=== PATIENT | male | born 1935 | race Caucasian/White ===

== ENCOUNTER 2023-03-05 13:05 | Inpatient (IN) | payer MEDICARE, BC ==
[2023-03-05] VITALS (22 sets, daily range): BP systolic 68–116; BP diastolic 56–91
[~2023-03-05] VITALS: Ht 177.8 cm; Wt 73.5 kg
[2023-03-05] MEDS ORDERED: VANCOMYCIN 1 GM in IV D5W 250 ML IV ONE (13:30)
[2023-03-05] MEDS ORDERED: AZITHROMYCIN 500 MG in IV D5W 250 ML IV ONE (13:30)
[2023-03-05] MEDS ORDERED: PIPERACILLIN /TAZOBACTAM 3.375 G in IV D5W 50 ML IV ONE (13:30)
[2023-03-05 13:36] LABS: ABG BASE EXCESS 0.4 mmol/L; ABG PCO2 40.6 mmHg (35.0-45.0); ABG PH 7.409 (7.350-7.450); ABG PO2 77.8 mmHg (75.0-100.0); COHb 0.5 % (0.5-1.5); MetHb 0.3 % (0.0-1.5); O2Hb 93.1 % (94.0-97.0); SITE, ABG Left Radial; VENT MODE, BG 15 LPM NRB
[2023-03-05 13:46] LABS: BASOPHILS # (AUTO) 0.1 K/uL (0.0-0.2); BASOPHILS % (AUTO) 0.5 % (0.0-2.0); EOSINOPHILS % (AUTO) 0.1 % (0.0-6.0); HEMATOCRIT 35 % (39-51); HEMOGLOBIN 10.6 g/dL (13.5-17.5); LYMPHOCYTES # (AUTO) 0.2 K/uL (0.8-4.8); LYMPHOCYTES % (AUTO) 1.7 % (20.0-44.0); MEAN CORPUSCULAR HGB CONC 30 g/dl (31.0-36.0); MEAN CORPUSCULAR VOLUME 103 fL (80-96); MONOCYTES # (AUTO) 0.3 K/uL (0.1-1.30); MONOCYTES % (AUTO) 2.3 % (2.0-12.0); NEUTROPHILS # (AUTO) 10.6 K/uL (1.8-8.9); NEUTROPHILS % (AUTO) 95.4 % (43.0-81.0); PLATELET COUNT (AUTO) 80 K/uL (150-450); RED BLOOD CELL COUNT(AUTO) 3.43 MIL/uL (4.5-6.0); WHITE BLOOD COUNT (AUTO) 11.1 K/uL (4.3-11.0)
[2023-03-05 14:14] LABS: CALCIUM, SERUM 9.1 mg/dL (8.5-10.1); CARBON DIOXIDE 29 mmol/L (21-32); CHLORIDE 103 mmol/L (98-107); CREATININE 4.7 mg/dL (0.6-1.3); GLUCOSE 136 mg/dL (74-106); POTASSIUM 4.5 mmol/L (3.5-5.1); SODIUM SERUM 143 mmol/L (136-145); UREA NITROGEN, BLOOD 37 mg/dL (7-18)
[2023-03-05 14:26] LABS: ALANINE AMINOTRANSFERASE 29 U/L (12-78); ALBUMIN 3.2 g/dL (3.4-5.0); ALKALINE PHOSPHATASE 153 U/L (46-116); ASPARTATE AMINOTRANSFERASE 20 U/L (15-37); BILIRUBIN,DIRECT 0.2 mg/dL (0.0-0.2); BILIRUBIN,TOTAL 0.4 mg/dL (0.2-1.0); TOTAL PROTEIN, SERUM 6.3 g/dL (6.4-8.2)
[2023-03-05 14:56] LABS: BILIRUBIN,URINE NEGATIVE (NEGATIVE); COLOR,URINE YELLOW (YELLOW); LEUKOCYTE ESTERASE ,URINE NEGATIVE (NEGATIVE); NITRITE, URINE NEGATIVE (NEGATIVE); PROTEIN,URINE 1+ mg/dl (NEGATIVE); UGLUCOSE NEGATIVE (NEGATIVE); UROBILINOGEN,URINE 0.2 EU/dL (0.2)
[2023-03-05] MEDS ORDERED: IV NS 0.9% 500 ML BAG IV ONE (15:30)
[2023-03-05] MEDS ORDERED: ONDANSETRON HCL/PF 4 MG/2 ML VIAL IVP PRN (16:00)
[2023-03-05] MEDS ORDERED: ACETAMINOPHEN 325 MG TABLET PO PRN (16:00)
[2023-03-05] MEDS ORDERED: Z GUARD REMEDY 4 OZ OINT TP PRN (16:00)
[2023-03-05] MEDS: HEPARIN SODIUM, PORCINE 5000 UNITS/1 ML VIAL SQ SCH (16:00)
[2023-03-05] MEDS ORDERED: MAG HYDROX/AL HYDROX/SIMETH 30 ML UDC PO PRN (16:00)
[2023-03-05] MEDS ORDERED: NOREPINEPHRINE 8 MG in IV D5W 242 ML IV PRN (16:00)
[2023-03-05] MEDS ORDERED: MAGNESIUM HYDROXIDE 30 ML UDC PO PRN (16:00)
[2023-03-05] MEDS ORDERED: GABA-532 PO (16:40)
[2023-03-05] MEDS ORDERED: ALLO300T2 PO (16:40)
[2023-03-05] MEDS ORDERED: SODI15OR6 PO (16:40)
[2023-03-05] MEDS ORDERED: ATOR10TA PO (16:40)
[2023-03-05] MEDS ORDERED: AMIO200T5 PO (16:40)
[2023-03-05] MEDS ORDERED: FINA5TAB11 PO (16:40)
[2023-03-05] MEDS ORDERED: LEVO100T9 PO (16:40)
[2023-03-05] MEDS ORDERED: MODAFINIL PO (16:40)
[2023-03-05] MEDS ORDERED: MIDO10TA PO (16:40)
[2023-03-05] MEDS ORDERED: CHOL100043 PO (16:40)
[2023-03-05] MEDS ORDERED: AMLO-213 PO (16:40)
[2023-03-05] MEDS ORDERED: HYDR100T27 PO (16:40)
[2023-03-05] MEDS ORDERED: PANT40TA49 PO (16:40)
[2023-03-05] MEDS ORDERED: FURO40TA5 PO (16:40)
[2023-03-05] MEDS ORDERED: INSU100V28 SQ (16:43)
[2023-03-05] MEDS ORDERED: PRAM0.5T11 PO (16:44)
[2023-03-05 16:45] LABS: BACTERIA,URINE Few /HPF (None Seen); MUCUS,URINE Rare /LPF (None Seen); RBC,URINE NONE SEEN /HPF (0-2); SQUAMOUS EPITHELIAL CELL,UR None Seen /HPF (None Seen); WBC,URINE NONE SEEN /HPF (0-3)
[2023-03-05 18:33] LABS: EOSINOPHILS % (MANUAL) 2 % (0-4); LYMPHOCYTES % (MANUAL) 1 % (16-48); MONOCYTES % (MANUAL) 2 % (0-11.0); NEUTROPHILS % (MANUAL) 95 (42-76)
[2023-03-05] MEDS: methylPREDNISolone SOD SUCC 40 MG/ML VIAL IV SCH ×2 (19:19→21:00)
[2023-03-05] MEDS: PIPERACILLIN /TAZOBACTAM 2.25 G in IV D5W 50 ML IV SCH (19:19)
[2023-03-05] MEDS ORDERED: NOREPINEPHRINE 8 MG in IV NS 0.9% 242 ML IV PRN ×4 (19:30)
[2023-03-05] MEDS ORDERED: NOREPINEPHRINE 32 MG in IV NS 0.9% 218 ML IV PRN (21:00)
[2023-03-05] MEDS: IV NS 0.9% 250 ML IV PRN (23:46)
[2023-03-06] VITALS (75 sets, daily range): BP systolic 86–137; BP diastolic 21–99
[2023-03-06 04:26] LABS: BASOPHILS % (AUTO) 0.1 % (0.0-2.0); HEMATOCRIT 37 % (39-51); HEMOGLOBIN 11.3 g/dL (13.5-17.5); LYMPHOCYTES # (AUTO) 0.1 K/uL (0.8-4.8); LYMPHOCYTES % (AUTO) 0.8 % (20.0-44.0); MEAN CORPUSCULAR HGB CONC 31 g/dl (31.0-36.0); MEAN CORPUSCULAR VOLUME 101 fL (80-96); MONOCYTES # (AUTO) 0.1 K/uL (0.1-1.30); MONOCYTES % (AUTO) 0.5 % (2.0-12.0); NEUTROPHILS # (AUTO) 17.9 K/uL (1.8-8.9); NEUTROPHILS % (AUTO) 98.6 % (43.0-81.0); PLATELET COUNT (AUTO) 128 K/uL (150-450); RED BLOOD CELL COUNT(AUTO) 3.62 MIL/uL (4.5-6.0); WHITE BLOOD COUNT (AUTO) 18.2 K/uL (4.3-11.0)
[2023-03-06] MEDS: HEPARIN SODIUM, PORCINE 5000 UNITS/1 ML VIAL SQ SCH ×2 (04:39→16:24)
[2023-03-06] MEDS: methylPREDNISolone SOD SUCC 40 MG/ML VIAL IV SCH (04:39)
[2023-03-06 04:40] LABS: ALANINE AMINOTRANSFERASE 32 U/L (12-78); ALBUMIN 3.1 g/dL (3.4-5.0); ALKALINE PHOSPHATASE 154 U/L (46-116); ASPARTATE AMINOTRANSFERASE 19 U/L (15-37); BILIRUBIN,TOTAL 0.6 mg/dL (0.2-1.0); CALCIUM, SERUM 9.1 mg/dL (8.5-10.1); CARBON DIOXIDE 27 mmol/L (21-32); CHLORIDE 100 mmol/L (98-107); CREATININE 4.9 mg/dL (0.6-1.3); GLUCOSE 191 mg/dL (74-106); MAGNESIUM 2.1 mg/dL (1.8-2.4); PHOSPHORUS 4.3 mg/dL (2.5-4.9); POTASSIUM 5.4 mmol/L (3.5-5.1); SODIUM SERUM 139 mmol/L (136-145); TOTAL PROTEIN, SERUM 6.6 g/dL (6.4-8.2); UREA NITROGEN, BLOOD 41 mg/dL (7-18)
[2023-03-06] MEDS: PIPERACILLIN /TAZOBACTAM 2.25 G in IV D5W 50 ML IV SCH ×6 (05:31→23:51)
[2023-03-06 10:05] LABS: ABG BASE EXCESS 2.4 mmol/L; ABG OXYGEN SATURATION 87.8 % (92.0-98.5); ABG PO2 51.3 mmHg (75.0-100.0); COHb 0.9 % (0.5-1.5); MetHb 0.1 % (0.0-1.5); O2Hb 86.9 % (94.0-97.0); SITE, ABG Right Radial
[2023-03-06] MEDS: VANCOMYCIN 500 MG in IV D5W 100 ML IV PRN (12:50)
[2023-03-06] MEDS: IV NS 0.9% 250 ML IV PRN (21:07)
[2023-03-07] VITALS (24 sets, daily range): BP systolic 87–130; BP diastolic 54–95
[2023-03-07 04:42] LABS: BASOPHILS % (AUTO) 0.1 % (0.0-2.0); HEMATOCRIT 32 % (39-51); HEMOGLOBIN 9.9 g/dL (13.5-17.5); LYMPHOCYTES # (AUTO) 0.4 K/uL (0.8-4.8); LYMPHOCYTES % (AUTO) 3.7 % (20.0-44.0); MEAN CORPUSCULAR HGB CONC 31 g/dl (31.0-36.0); MEAN CORPUSCULAR VOLUME 101 fL (80-96); MONOCYTES # (AUTO) 0.6 K/uL (0.1-1.30); MONOCYTES % (AUTO) 4.9 % (2.0-12.0); NEUTROPHILS # (AUTO) 10.6 K/uL (1.8-8.9); NEUTROPHILS % (AUTO) 91.3 % (43.0-81.0); PLATELET COUNT (AUTO) 90 K/uL (150-450); RED BLOOD CELL COUNT(AUTO) 3.12 MIL/uL (4.5-6.0); WHITE BLOOD COUNT (AUTO) 11.6 K/uL (4.3-11.0)
[2023-03-07] MEDS: HEPARIN SODIUM, PORCINE 5000 UNITS/1 ML VIAL SQ SCH ×2 (05:10→16:00)
[2023-03-07 05:29] LABS: ALANINE AMINOTRANSFERASE 33 U/L (12-78); ALBUMIN 2.9 g/dL (3.4-5.0); ALKALINE PHOSPHATASE 129 U/L (46-116); ASPARTATE AMINOTRANSFERASE 28 U/L (15-37); BILIRUBIN,TOTAL 0.6 mg/dL (0.2-1.0); CALCIUM, SERUM 9.2 mg/dL (8.5-10.1); CARBON DIOXIDE 25 mmol/L (21-32); CHLORIDE 101 mmol/L (98-107); CREATININE 4.7 mg/dL (0.6-1.3); GLUCOSE 107 mg/dL (74-106); MAGNESIUM 2.1 mg/dL (1.8-2.4); PHOSPHORUS 5.1 mg/dL (2.5-4.9); POTASSIUM 5.3 mmol/L (3.5-5.1); SODIUM SERUM 140 mmol/L (136-145); TOTAL PROTEIN, SERUM 6.1 g/dL (6.4-8.2); UREA NITROGEN, BLOOD 43 mg/dL (7-18)
[2023-03-07] MEDS: PIPERACILLIN /TAZOBACTAM 2.25 G in IV D5W 50 ML IV SCH ×4 (05:44→23:32)
[2023-03-07] MEDS: VANCOMYCIN 500 MG in IV D5W 100 ML IV PRN (13:45)
[2023-03-07 14:11] LABS: LYMPHOCYTES % (MANUAL) 9 % (16-48); MONOCYTES % (MANUAL) 3 % (0-11.0); NEUTROPHILS % (MANUAL) 88 (42-76)
[2023-03-07] MEDS: MUPIROCIN OINT 2% 22 GM TUBE NS SCH (22:28)
[2023-03-08] VITALS (18 sets, daily range): BP systolic 95–118; BP diastolic 48–87
[2023-03-08] MEDS: PIPERACILLIN /TAZOBACTAM 2.25 G in IV D5W 50 ML IV SCH ×4 (05:12→23:41)
[2023-03-08] MEDS: HEPARIN SODIUM, PORCINE 5000 UNITS/1 ML VIAL SQ SCH ×2 (05:20→15:10)
[2023-03-08 05:21] LABS: CALCIUM, SERUM 8.8 mg/dL (8.5-10.1); CARBON DIOXIDE 20 mmol/L (21-32); CHLORIDE 107 mmol/L (98-107); GLUCOSE 95 mg/dL (74-106); POTASSIUM 4.3 mmol/L (3.5-5.1); SODIUM SERUM 144 mmol/L (136-145); UREA NITROGEN, BLOOD 42 mg/dL (7-18)
[2023-03-08] MEDS: MUPIROCIN OINT 2% 22 GM TUBE NS SCH ×2 (11:13→21:03)
[2023-03-08] MEDS: VANCOMYCIN 500 MG in IV D5W 100 ML IV PRN (11:59)
[2023-03-09] VITALS: BP 102/52
[2023-03-09] MEDS: HEPARIN SODIUM, PORCINE 5000 UNITS/1 ML VIAL SQ SCH ×2 (03:54→16:03)
[2023-03-09 04:00] VITALS: BP 107/61
[2023-03-09] MEDS: PIPERACILLIN /TAZOBACTAM 2.25 G in IV D5W 50 ML IV SCH ×3 (05:04→17:00)
[2023-03-09 06:49] LABS: CALCIUM, SERUM 9.1 mg/dL (8.5-10.1); CARBON DIOXIDE 22 mmol/L (21-32); CHLORIDE 105 mmol/L (98-107); CREATININE 4.1 mg/dL (0.6-1.3); GLUCOSE 115 mg/dL (74-106); POTASSIUM 3.7 mmol/L (3.5-5.1); SODIUM SERUM 144 mmol/L (136-145); UREA NITROGEN, BLOOD 45 mg/dL (7-18)
[2023-03-09 08:00] VITALS: BP 141/82
[2023-03-09] MEDS: MUPIROCIN OINT 2% 22 GM TUBE NS SCH ×2 (08:14→22:08)
[2023-03-09 12:00] VITALS: BP 137/63
[2023-03-09 16:00] VITALS: BP 125/63
[2023-03-09 20:00] VITALS: BP 114/51
[2023-03-09] MEDS: risperiDONE 1 MG TABLET PO SCH (22:00)
[2023-03-10] VITALS: BP 120/53
[2023-03-10] MEDS: PIPERACILLIN /TAZOBACTAM 2.25 G in IV D5W 50 ML IV SCH ×5 (00:27→23:54)
[2023-03-10 04:00] VITALS: BP 121/58
[2023-03-10] MEDS: HEPARIN SODIUM, PORCINE 5000 UNITS/1 ML VIAL SQ SCH ×2 (04:28→15:13)
[2023-03-10 08:00] VITALS: BP 102/48
[2023-03-10 08:25] LABS: CALCIUM, SERUM 8.9 mg/dL (8.5-10.1); CARBON DIOXIDE 22 mmol/L (21-32); CHLORIDE 107 mmol/L (98-107); GLUCOSE 100 mg/dL (74-106); POTASSIUM 3.9 mmol/L (3.5-5.1); SODIUM SERUM 147 mmol/L (136-145); UREA NITROGEN, BLOOD 56 mg/dL (7-18)
[2023-03-10] MEDS: MUPIROCIN OINT 2% 22 GM TUBE NS SCH ×2 (08:32→21:31)
[2023-03-10] MEDS: risperiDONE 0.25 MG TABLET PO SCH ×2 (08:32→16:34)
[2023-03-10 12:00] VITALS: BP 122/56
[2023-03-10 16:14] VITALS: BP 119/46
[2023-03-10 20:00] VITALS: BP 142/70
[2023-03-10] MEDS: VANCOMYCIN 500 MG in IV D5W 100 ML IV PRN (20:27)
[2023-03-10] MEDS: risperiDONE 1 MG TABLET PO SCH (21:32)
[2023-03-11] VITALS: BP 144/73
[2023-03-11] MEDS: HEPARIN SODIUM, PORCINE 5000 UNITS/1 ML VIAL SQ SCH ×2 (03:15→15:59)
[2023-03-11 04:00] VITALS: BP 143/60
[2023-03-11] MEDS: PIPERACILLIN /TAZOBACTAM 2.25 G in IV D5W 50 ML IV SCH ×3 (05:25→17:01)
[2023-03-11 06:49] LABS: CARBON DIOXIDE 24 mmol/L (21-32); CHLORIDE 108 mmol/L (98-107); CREATININE 4.2 mg/dL (0.6-1.3); GLUCOSE 112 mg/dL (74-106); POTASSIUM 3.6 mmol/L (3.5-5.1); SODIUM SERUM 145 mmol/L (136-145); UREA NITROGEN, BLOOD 39 mg/dL (7-18)
[2023-03-11 07:58] LABS: CALCIUM, SERUM 8.9 mg/dL (8.5-10.1); CARBON DIOXIDE 23 mmol/L (21-32); CHLORIDE 108 mmol/L (98-107); CREATININE 4.2 mg/dL (0.6-1.3); GLUCOSE 112 mg/dL (74-106); POTASSIUM 3.6 mmol/L (3.5-5.1); SODIUM SERUM 147 mmol/L (136-145); UREA NITROGEN, BLOOD 38 mg/dL (7-18)
[2023-03-11 08:00] VITALS: BP 101/58
[2023-03-11 08:02] LABS: ALANINE AMINOTRANSFERASE 28 U/L (12-78); ALBUMIN 2.3 g/dL (3.4-5.0); ALKALINE PHOSPHATASE 100 U/L (46-116); ASPARTATE AMINOTRANSFERASE 23 U/L (15-37); BILIRUBIN,TOTAL 0.8 mg/dL (0.2-1.0); TOTAL PROTEIN, SERUM 5.6 g/dL (6.4-8.2)
[2023-03-11] MEDS: MUPIROCIN OINT 2% 22 GM TUBE NS SCH ×2 (08:07→21:44)
[2023-03-11] MEDS: risperiDONE 0.25 MG TABLET PO SCH ×2 (08:16→16:03)
[2023-03-11] MEDS ORDERED: NEPRO VAN 237 ML CAN PO PRN (11:00)
[2023-03-11 12:00] VITALS: BP 123/59
[2023-03-11 16:00] VITALS: BP 119/61
[2023-03-11 20:00] VITALS: BP 106/71
[2023-03-11] MEDS: risperiDONE 1 MG TABLET PO SCH (21:43)
[2023-03-12] VITALS: BP 110/80
[2023-03-12] MEDS: PIPERACILLIN /TAZOBACTAM 2.25 G in IV D5W 50 ML IV SCH ×2 (00:14→05:12)
[2023-03-12] MEDS: HEPARIN SODIUM, PORCINE 5000 UNITS/1 ML VIAL SQ SCH ×2 (03:49→15:59)
[2023-03-12 04:00] VITALS: BP 115/68
[2023-03-12 06:52] LABS: CARBON DIOXIDE 26 mmol/L (21-32); CHLORIDE 107 mmol/L (98-107); CREATININE 3.6 mg/dL (0.6-1.3); GLUCOSE 134 mg/dL (74-106); POTASSIUM 3.3 mmol/L (3.5-5.1); SODIUM SERUM 146 mmol/L (136-145); UREA NITROGEN, BLOOD 29 mg/dL (7-18)
[2023-03-12 08:00] VITALS: BP 118/63
[2023-03-12] MEDS: risperiDONE 0.25 MG TABLET PO SCH ×2 (08:32→16:00)
[2023-03-12] MEDS: MUPIROCIN OINT 2% 22 GM TUBE NS SCH ×2 (08:32→21:06)
[2023-03-12 09:17] LABS: CALCIUM, SERUM 9.1 mg/dL (8.5-10.1); CARBON DIOXIDE 23 mmol/L (21-32); CHLORIDE 109 mmol/L (98-107); CREATININE 3.5 mg/dL (0.6-1.3); GLUCOSE 131 mg/dL (74-106); POTASSIUM 3.4 mmol/L (3.5-5.1); SODIUM SERUM 146 mmol/L (136-145); UREA NITROGEN, BLOOD 29 mg/dL (7-18)
[2023-03-12 09:23] LABS: ALANINE AMINOTRANSFERASE 25 U/L (12-78); ALBUMIN 2.5 g/dL (3.4-5.0); ALKALINE PHOSPHATASE 108 U/L (46-116); ASPARTATE AMINOTRANSFERASE 25 U/L (15-37); BILIRUBIN,TOTAL 0.8 mg/dL (0.2-1.0); TOTAL PROTEIN, SERUM 6.1 g/dL (6.4-8.2)
[2023-03-12 16:00] VITALS: BP 118/59
[2023-03-12 20:00] VITALS: BP 125/58
[2023-03-12] MEDS: risperiDONE 1 MG TABLET PO SCH (21:07)
[2023-03-13 04:00] VITALS: BP 125/58
[2023-03-13 07:36] LABS: CALCIUM, SERUM 9.1 mg/dL (8.5-10.1); CARBON DIOXIDE 25 mmol/L (21-32); CHLORIDE 108 mmol/L (98-107); CREATININE 3.3 mg/dL (0.6-1.3); GLUCOSE 122 mg/dL (74-106); POTASSIUM 3.3 mmol/L (3.5-5.1); SODIUM SERUM 145 mmol/L (136-145); UREA NITROGEN, BLOOD 24 mg/dL (7-18)
[2023-03-13] MEDS: risperiDONE 0.25 MG TABLET PO SCH ×2 (08:00→16:34)
[2023-03-13] MEDS: MUPIROCIN OINT 2% 22 GM TUBE NS SCH ×2 (08:00→20:28)
[2023-03-13] MEDS: FINASTERIDE (5 MG) 5 MG TABLET PO SCH (09:48)
[2023-03-13] MEDS: AMLODIPINE BESYLATE 10 MG TABLET PO SCH (09:48)
[2023-03-13 12:00] VITALS: BP 123/85
[2023-03-13] MEDS: PRAMIPEXOLE DI-HCL 0.25 MG TABLET PO SCH (16:34)
[2023-03-13] MEDS: MODAFINIL 100 MG TABLET PO SCH (16:34)
[2023-03-13] MEDS: ATORVASTATIN 10 MG TABLET PO SCH (17:07)
[2023-03-13 20:00] VITALS: BP 151/58
[2023-03-13] MEDS: GABAPENTIN 100 MG CAPSULE PO SCH (21:39)
[2023-03-13] MEDS: risperiDONE 1 MG TABLET PO SCH (21:40)
[2023-03-14 04:00] VITALS: BP 96/57
[2023-03-14 07:09] LABS: CALCIUM, SERUM 9.2 mg/dL (8.5-10.1); CARBON DIOXIDE 26 mmol/L (21-32); CHLORIDE 110 mmol/L (98-107); CREATININE 4.1 mg/dL (0.6-1.3); GLUCOSE 108 mg/dL (74-106); POTASSIUM 3.2 mmol/L (3.5-5.1); SODIUM SERUM 146 mmol/L (136-145); UREA NITROGEN, BLOOD 35 mg/dL (7-18)
[2023-03-14] MEDS: PANTOPRAZOLE 40 MG TABLET.DR PO SCH (08:06)
[2023-03-14] MEDS: LEVOTHYROXINE SODIUM 100 MCG TABLET PO SCH (08:06)
[2023-03-14] MEDS: MODAFINIL 100 MG TABLET PO SCH ×2 (09:17→16:31)
[2023-03-14] MEDS: ALLOPURINOL 100 MG TABLET PO SCH (09:17)
[2023-03-14] MEDS: AMLODIPINE BESYLATE 10 MG TABLET PO SCH (09:17)
[2023-03-14] MEDS: CHOLECALCIFEROL 1,000 UNIT TABLET (VIT D3) PO SCH (09:18)
[2023-03-14] MEDS: PRAMIPEXOLE DI-HCL 0.25 MG TABLET PO SCH ×3 (09:18→16:31)
[2023-03-14] MEDS: FINASTERIDE (5 MG) 5 MG TABLET PO SCH (09:18)
[2023-03-14] MEDS: risperiDONE 0.25 MG TABLET PO SCH ×2 (09:18→16:31)
[2023-03-14] MEDS: MUPIROCIN OINT 2% 22 GM TUBE NS SCH ×2 (09:29→21:12)
[2023-03-14 12:00] VITALS: BP 128/57
[2023-03-14] MEDS ORDERED: POTASSIUM CHLORIDE 20 MEQ TAB.PRT.SR PO ONE (14:00)
[2023-03-14 16:00] VITALS: BP 123/50
[2023-03-14] MEDS: ATORVASTATIN 10 MG TABLET PO SCH (17:11)
[2023-03-14 20:00] VITALS: BP 141/59
[2023-03-14] MEDS: GABAPENTIN 100 MG CAPSULE PO SCH (21:05)
[2023-03-14] MEDS: risperiDONE 1 MG TABLET PO SCH (21:05)
[2023-03-15 04:00] VITALS: BP 139/62
[2023-03-15 06:19] LABS: CARBON DIOXIDE 25 mmol/L (21-32); CHLORIDE 107 mmol/L (98-107); CREATININE 3.9 mg/dL (0.6-1.3); GLUCOSE 123 mg/dL (74-106); SODIUM SERUM 142 mmol/L (136-145); UREA NITROGEN, BLOOD 30 mg/dL (7-18)
[2023-03-15] MEDS: PANTOPRAZOLE 40 MG TABLET.DR PO SCH (07:33)
[2023-03-15] MEDS: LEVOTHYROXINE SODIUM 100 MCG TABLET PO SCH (07:33)
[2023-03-15] MEDS: PRAMIPEXOLE DI-HCL 0.25 MG TABLET PO SCH ×2 (08:47→12:35)
[2023-03-15] MEDS: risperiDONE 0.25 MG TABLET PO SCH (08:47)
[2023-03-15] MEDS: MODAFINIL 100 MG TABLET PO SCH (08:47)
[2023-03-15] MEDS: CHOLECALCIFEROL 1,000 UNIT TABLET (VIT D3) PO SCH (08:47)
[2023-03-15] MEDS: FINASTERIDE (5 MG) 5 MG TABLET PO SCH (08:47)
[2023-03-15] MEDS: ALLOPURINOL 100 MG TABLET PO SCH (08:47)
[2023-03-15 08:48] VITALS: BP 116/59
[2023-03-15] MEDS: AMLODIPINE BESYLATE 10 MG TABLET PO SCH (08:48)
[2023-03-15] MEDS: MUPIROCIN OINT 2% 22 GM TUBE NS SCH (08:48)
[2023-03-15] MEDS ORDERED: RISP0.2515 PO (12:12)
[2023-03-15] MEDS ORDERED: RISP1TAB7 PO (12:12)
== END 2023-03-15 14:37 | DRG 871 ==
LOC: ER 13:07 → ICU 16:50 → TELE-TD 03-08 16:01 → TELE1 03-11 16:09 → MEDSG1 03-12 08:26
PROVIDERS: ADMIT Internal Medicine; ATTEND Internal Medicine
PROC: 5A09357 Assistance with Respiratory Ventilation, Less than 24 Consecutive Hours, Continuous Positive Airway Pressure (ICD-10-PCS; principal; 2023-03-05)
PROC: 06H033Z Insertion of Infusion Device into Inferior Vena Cava, Percutaneous Approach (ICD-10-PCS; 2023-03-05)
PROC: 5A1D70Z Performance of Urinary Filtration, Intermittent, Less than 6 Hours Per Day (ICD-10-PCS; 2023-03-06)
PROC: 05HB33Z Insertion of Infusion Device into Right Basilic Vein, Percutaneous Approach (ICD-10-PCS; 2023-03-08)
DX: A41.9 Sepsis, unspecified organism (principal); I50.23 Acute on chronic systolic (congestive) heart failure; J96.01 Acute respiratory failure with hypoxia; R65.21 Severe sepsis with septic shock; J15.9 Unspecified bacterial pneumonia; N18.6 End stage renal disease; I13.2 Hypertensive heart and chronic kidney disease with heart failure and with stage 5 chronic kidney disease, or end stage renal disease; E87.0 Hyperosmolality and hypernatremia; T82.111A Breakdown (mechanical) of cardiac pulse generator (battery), initial encounter; D69.6 Thrombocytopenia, unspecified; E11.22 Type 2 diabetes mellitus with diabetic chronic kidney disease; Z99.2 Dependence on renal dialysis; Z22.322 Carrier or suspected carrier of Methicillin resistant Staphylococcus aureus; E87.5 Hyperkalemia; E78.5 Hyperlipidemia, unspecified; Z20.822 Contact with and (suspected) exposure to COVID-19; Z95.0 Presence of cardiac pacemaker; R68.0 Hypothermia, not associated with low environmental temperature; G25.81 Restless legs syndrome; I70.0 Atherosclerosis of aorta; G47.31 Primary central sleep apnea; Y71.8 Miscellaneous cardiovascular devices associated with adverse incidents, not elsewhere classified; Y92.89 Other specified places as the place of occurrence of the external cause; D63.8 Anemia in other chronic diseases classified elsewhere; M89.8X9 Other specified disorders of bone, unspecified site; E87.6 Hypokalemia
CPT/HCPCS: 36415; 36600; 71045-TC; 74018; 80048-TC; 80053-TC; 80076-TC; 80202-TC; 81001; 82533; 82803-TC; 83735-TC; 83880; 84100-TC; 84484-TC; 85025-TC; 85730-TC; 86706; 86803; 87040-TC; 87081-TC; 87086-TC; 87340; 87806; 90935-TC; 92526; 92611-TC; 93307-TC; 94660; 94799-TC; A4223; C9803; G0378; J0456; J1644; J2543; J2920; J3370; J7030; J7040; J7050; J7060